=== PATIENT | female | born 1990 | race Caucasian/White ===

== ENCOUNTER 2017-12-27 08:30 | Inpatient (IN) | payer OTHER ==
[~2017-12-27] VITALS: Ht 162.6 cm; Wt 3.6 kg
[2018-01-21] MEDS ORDERED: PRENATAL TABLE1 EACH PO (16:01)
== END 2018-01-25 11:05 | DRG 766 ==
LOC: OB/GYN 12-31 08:30 → LDR 01-21 14:55 → OB/GYN 01-21 14:55
PROVIDERS: Obstetrics & Gynecology
PROC: 3E0P7VZ Introduction of Hormone into Female Reproductive, Via Natural or Artificial Opening (ICD-10-PCS; 2018-01-22)
PROC: 3E033VJ Introduction of Other Hormone into Peripheral Vein, Percutaneous Approach (ICD-10-PCS; 2018-01-22)
PROC: 10907ZC Drainage of Amniotic Fluid, Therapeutic from Products of Conception, Via Natural or Artificial Opening (ICD-10-PCS; 2018-01-22)
PROC: 4A1HXCZ Monitoring of Products of Conception, Cardiac Rate, External Approach (ICD-10-PCS; 2018-01-22)
PROC: 10D00Z1 Extraction of Products of Conception, Low, Open Approach (ICD-10-PCS; principal; 2018-01-22 18:00)
DX: O48.0 Post-term pregnancy (principal); O65.8 Obstructed labor due to other maternal pelvic abnormalities; O61.0 Failed medical induction of labor; O99.824 Streptococcus B carrier state complicating childbirth; Z3A.40 40 weeks gestation of pregnancy; Z37.0 Single live birth

== ENCOUNTER 2018-01-10 15:30 | Outpatient (CLI) | payer OTHER | END 2018-01-10 16:49 | disposition home or self-care (01) | LOC: NST 15:30 | DX: Z34.83 Encounter for supervision of other normal pregnancy, third trimester (principal) ==

== ENCOUNTER → 2018-01-20 | Outpatient (CLI) | payer OTHER ==
[~2018-01-20] MED LIST: PRENATAL TABLE1 EACH PO
== END | disposition home or self-care (01) ==
LOC: OBS/DEL 16:56 → NST 17:35
DX: Z34.83 Encounter for supervision of other normal pregnancy, third trimester (principal)

== ENCOUNTER 2019-02-06 10:41 | Inpatient (IN) | payer OTHER ==
[~2019-02-06] VITALS: Ht 162.6 cm; Wt 3.2 kg
== END 2019-03-02 12:28 | disposition home or self-care (01) | DRG 788 ==
LOC: OB/GYN 02-13 10:15 → SURG-SUITE 02-27 15:07 → LDR 02-27 15:07 → SURG-SUITE 02-27 17:43 → OB/GYN 03-09 10:15
PROVIDERS: ADMIT Obstetrics & Gynecology
PROC: 4A1HXCZ Monitoring of Products of Conception, Cardiac Rate, External Approach (ICD-10-PCS; 2019-02-27)
PROC: 10D00Z1 Extraction of Products of Conception, Low, Open Approach (ICD-10-PCS; principal; 2019-02-27 07:00)
DX: O82 Encounter for cesarean delivery without indication (principal); Z3A.39 39 weeks gestation of pregnancy; Z37.0 Single live birth